=== PATIENT | female | born 1975 | race Caucasian/White ===

== ENCOUNTER 2017-02-11 17:51 | Emergency (ER) | payer OTHER ==
[2017-02-11 20:16] VITALS: BP 145/94
[2017-02-11] MEDS ORDERED: DOXYcycline CAP(*) 100 MG PO ONE (20:51)
--- NOTE | 2017-02-11 20:56 | UC ---
Eleni Cramer Alok, scribed for Erum Tejada MD on 02/11/17 at 2050 . Skin Complaint HPI - HPI Summary HPI Summary: 41F presents to the [facility] for diffuse rashes on her abd, legs, and feet which have been coming and going for the last month. Pt states her rashes are pruritus without pain. lesions are flat, per pt start approx "3 inches" and then spread. Pt states have white center. Pt denies known tick bite. Pt reports fatigue but no other complaints. Pt notes diarrhea. Pt denies fever, chills, open wounds, N/V, WIGGINS, vision changes, CP, or SOB. No ute products, known allergies, new environment. PMHx includes Hereditary spherocytosis. Pt denies regular medications. Pt has been taking ibuprofen for dental cavity. Pt smokes 1/2 ppd. Pt drinks ETOH and uses marijuana occasionally. Pt has an IUD. Pt has NKDA. Pt medications reviewed this visit. - History of Current Complaint Chief Complaint: UCRash Time Seen by Provider: 02/11/17 20:42 Stated Complaint: RASH WITH A BULLSEYE Hx Obtained From: Patient Hx Last Menstrual Period: 02/09/15 Onset/Duration: Lasting Weeks, Still Present Onset Severity: Moderate Current Severity: Moderate Pain Intensity: 0 Pain Scale Used: 0-10 Numeric Location: Diffuse Character: Pruritus Aggravating: Nothing Alleviating: Nothing Associated Signs & Symptoms: Positive: Rash. Negative: Nausea, Vomiting, Fever , Chills, Chest Pain - Allergy/Home Medications Allergies/Adverse Reactions: Allergies Allergy/AdvReac Type Severity Reaction Status Date / Time No Known Allergies Allergy Verified 04/30/12 12:47 Home Medications: Home Medications Ibuprofen [Advil] 200 mg PO 02/11/17 [History] Review of Systems Constitutional: Negative Skin: Rash Eyes: Negative ENT: Negative Respiratory: Negative Cardiovascular: Negative Gastrointestinal: Diarrhea Genitourinary: Negative Motor: Negative Neurovascular: Negative Musculoskeletal: Negative Neurological: Negative Psychological: Negative All Other Systems Reviewed And Are Negative: Yes PMH/Surg Hx/FS Hx/Imm Hx Previously Healthy: Yes Other History Of: Negative For: Anticoagulant Therapy - Surgical History Surgical History: None - Family History Known Family History: Positive: Other - hx of hydranetitis suppurativa. - Social History Occupation: Employed Full-time Alcohol Use: Occasionally Substance Use Type: None Smoking Status (MU): Heavy Every Day Tobacco Smoker Physical Exam Triage Information Reviewed: Yes Appearance: Well-Appearing, No Pain Distress, Well-Nourished Vital Signs: Initial Vital Signs Temp 97.2 F 02/11/17 20:10 Pulse 80 02/11/17 20:10 Resp 18 02/11/17 20:10 BP 145/94 02/11/17 20:10 Pulse Ox 98 02/11/17 20:10 Eye Exam: Normal Eyes: Positive: Conjunctiva Clear ENT Exam: Normal Dental Exam: Normal Neck exam: Normal Neck: Positive: Supple, Nontender Respiratory Exam: Normal Respiratory: Positive: Chest non-tender, Lungs clear, Normal breath sounds, No respiratory distress, No accessory muscle use Cardiovascular Exam: Normal Cardiovascular: Positive: RRR, No Murmur, Pulses Normal Abdominal Exam: Normal Abdomen Description: Positive: Nontender, No Organomegaly, Soft Bowel Sounds: Positive: Present Musculoskeletal Exam: Normal Musculoskeletal: Positive: Strength Intact Neurological Exam: Normal Neurological: Positive: Alert Psychological Exam: Normal Psychological: Positive: Normal Response To Family Skin Exam: Normal Skin: Positive: rashes - Pt with 6 area of flat, pale erythematous rings with central white clearing. non tender no warmth not raised. rash on abdomen, upper right thigh, left anterior upper chest, right flank lesions 6-8 inches diameter Course/Dx - Course Course Of Treatment: Blood pressure noted and patient informed to follow up with PCP. Pt with flat,target appearing lesions on body - pt states have been intermittent and migratory x approx 2-3 weeks. Pt reports fatigue but no other symptoms. Concern for lyme given appearance of rash although pt reports No known tick exposure. Pt well appearing at today's exam. Will check lyme titer. will start doxy. strong recommendatin for followup with PCP and/or Dr. Quesada. return precautions discussed. Pt comfortable and in agreement with plan - Diagnoses Provider Diagnoses: rash, concern for lyme disease Discharge - Discharge Plan Condition: Stable Disposition: HOME Prescriptions: DOXYcycline CAP(*) [DOXYcycline 100MG CAP(*)] 100 mg PO BID #42 cap Fluconazole [Diflucan 150 MG (NF)] 150 mg PO ONCE #1 tab Patient Education Materials: Lyme Disease (ED), Acute Rash (ED) Referrals: [facility] [Outside] Dipak WEBB,Leonid Fulton [Medical Doctor] - No Primary Care Phys,NOPCP [Primary Care Provider] - Additional Instructions: - Take antibiotics as prescribed until gone - You have blood testing for Lyme disease - these results may take up to 7 days to return - It is strongly recommended you schedule a follow-up appointment with both Dr. Quesada (infection disease provider) as well as establish with a primary care provider. You have been given the contact information for the physician referral center which can help you establish with a new doctor. - If you develop uncontrolled fevers, headaches, nausea, vomiting or other concerns it is recommended you go to the emergency department for further evaluation The documentation as recorded by the Eleni cyr Alok accurately reflects the service I personally performed and the decisions made by me, Erum Tejada MD.
[2017-02-14 17:03] LABS: Lyme Disease IgG Ab WB Negative (Negative)
== END 2017-02-11 21:14 | disposition home or self-care (01) ==
LOC: UCEAST 17:51
DX: R21 Rash and other nonspecific skin eruption (principal); D58.0 Hereditary spherocytosis; Z72.0 Tobacco use
CPT/HCPCS: 86617; 86618; 99212; A9270-GY; G0463